=== PATIENT | male | born 1990 | race Caucasian/White ===

== ENCOUNTER 2018-02-15 11:01 | Emergency (ER) | payer OTHER ==
[2018-02-15] MEDS ORDERED: NA CHLORIDE 0.9% 1,000 ML ONE (11:28)
[2018-02-15] MEDS ORDERED: MORPHINE 4 MG/ML SYR ONE (11:28)
[2018-02-15] MEDS ORDERED: ONDANSETRON 4 MG/2 ML VIAL ONE (11:28)
[2018-02-15] MEDS ORDERED: ASPIRIN 81 MG CHEWABLE TABLET ONE (11:28)
[2018-02-15 11:52] LABS: Absolute Lymphocytes (CBC) 1.3 K/uL (0.7-4.9); Absolute Monocytes 0.7 K/uL (0.1-1.3); Absolute Neutrophil 5.2 K/uL (1.8-8.0); Basophils % 0.7 % (0-1.3); Eosinophils % 0.4 % (0-4.4); Hematocrit 45.9 % (39.6-49.0); Lymphocytes % 17.9 % (15.3-44.8); MCH 32.6 pg (27.0-35.0); MCV 95.7 fL (80-100); Monocytes % 9.8 % (3.3-12.3)
[2018-02-15 12:04] LABS: Bicarbonate 25 mEq/L (21-31); Glucose Level 105 mg/dL (65-120); Potassium 3.4 mEq/L (3.6-5.0); Sodium Level 137 mEq/L (135-145)
[2018-02-15 12:08] LABS: Protime INR 1.03
[2018-02-15 12:11] LABS: ALT/SGPT 26 IU/L (10-60); AST/SGOT 28 IU/L (10-42); Alkaline Phosphatase 55 IU/L (42-121); BUN Blood Urea Nitrogen 13 mg/dL (6-20); Bilirubin Direct 0.2 mg/dL (0-0.2); Bilirubin Total 3.5 mg/dL (0.3-1.2); Protein, Total 7.7 g/dL (6.0-8.3)
[2018-02-15 12:14] LABS: CKMB Creatine Kinase MB 1.2 ng/ml (0.3-4.0)
--- NOTE | 2018-02-15 12:18 | RAD REPORT ---
EXAM DESCRIPTION: RAD - Chest Single View - 02/15/2018 11:51 am CLINICAL HISTORY: Chest pain COMPARISON: None. TECHNIQUE: AP portable chest image was obtained 1139 hours . FINDINGS: Lungs are clear. Heart and vasculature are normal. No measurable pleural effusion and no p neumothorax. No gross bony abnormality seen. No acute aortic findings suspected. IMPRESSION: No acute cardiopulmonary process.
[2018-02-15] MEDS ORDERED: KETOROLAC 30 MG/ML INJ ONE (12:36)
[2018-02-15] MEDS ORDERED: POTASSIUM CL SA 10 MEQ TAB PO ONE (12:40)
--- NOTE | 2018-02-15 13:47 | EKG ---
Test Date: 2018-02-15 Test Time: 11:13:36 Shipping Lead Person: LUBA MEASUREMENT RESULTS: Intervals: Rate: 100 MI: 132 QRSD: 88 QT: 338 QTc: 436 [place]: P: 82 MI: 132 QRS: 80 T: 79 INTERPRETIVE STATEMENTS: Normal sinus rhythm Normal ECG No previous ECG available for comparison Electronically Signed On 02-15-18 13:46:20 CDT by Shay Sandoval
--- NOTE | 2018-02-15 15:40 | EKG ---
Test Date: 2018-02-15 Test Time: 14:45:16 Copy Camera Operator: FRANCES MEASUREMENT RESULTS: Intervals: Rate: 59 VA: 140 QRSD: 98 QT: 402 QTc: 397 [place]: P: 54 VA: 140 QRS: 74 T: 66 INTERPRETIVE STATEMENTS: Sinus bradycardia Early repolarization Otherwise normal ECG Compared to ECG 02/15/2018 11:13:36 Early repolarization now present Sinus rhythm no longer present Electronically Signed On 02-15-18 15:39:56 CDT by Shay Sandoval
--- NOTE | 2018-02-15 16:28 | ER ---
Nurse's Notes [facility] Name: Sebastián Herzog Age: 28 yrs Sex: Male : 1990 Arrival Date: 02/15/2018 Time: 11:02 Bed 8 Private MD: Diagnosis: Other chest pain Presentation: 02/15 11:08 Presenting complaint: Patient states: Sternal chest pain that started suddenly 1 hr [employer]UM[employer] aj while patient was at work. Patient reports pain is worse with movement and deep breathing. Transition of care: patient was not received from another setting of care. Onset of symptoms was February 15, 2018. Care prior to arrival: None. 11:08 Method Of Arrival: Ambulatory aj 11:08 Acuity: ARIE 3 aj 12:00 Risk Assessment: Do you want to hurt yourself or someone else? Patient reports no sg desire to harm self or others. Initial Sepsis Screen: Does the patient meet any 2 criteria? No. Patient's initial sepsis screen is negative. Does the patient have a suspected source of infection? No. Patient's initial sepsis screen is negative. Triage Assessment: 11:09 General: Appears in no apparent distress. uncomfortable, Behavior is calm, cooperative, aj appropriate for age. Pain: Complains of pain in chest. Neuro: Level of Consciousness is awake, alert, obeys commands, Oriented to person, place, time, situation. Cardiovascular: Reports chest pain, Capillary refill < 3 seconds in bilateral fingers. Respiratory: Airway is patent Respiratory effort is even, unlabored, Respiratory pattern is regular, symmetrical. Derm: Skin is intact, is healthy with good turgor, Skin is pink, warm \T\ dry. normal. Historical: - Allergies: 11:09 No Known Allergies; aj - Home Meds: 11: None [Active]; aj - PMHx: 11: None; aj - PSHx: 11: None; aj - Immunization history:: Adult Immunizations up to date. - Social history:: Smoking status: Patient/guardian denies using tobacco. - Ebola Screening: : Patient negative for fever greater than or equal to 101.5 degrees Fahrenheit, and additional compatible Ebola Virus Disease symptoms Patient denies exposure to infectious person Patient denies travel to an Ebola-affected area in the 21 days before illness onset No symptoms or risks identified at this time. Screenin:35 Abuse screen: Denies threats or abuse. Denies injuries from another. Nutritional sv screening: No deficits noted. Tuberculosis screening: No symptoms or risk factors identified. Fall Risk None identified. Assessment: 11:54 Reassessment: Patient is alert, oriented x 3, equal unlabored respirations, skin sg warm/dry/pink. General: Appears in no apparent distress. uncomfortable, well groomed, well developed, well nourished, Behavior is cooperative, appropriate for age, anxious. Pain: Complains of pain in chest Pain does not radiate. Pain began 3 hours ago. Neuro: No deficits noted. Cardiovascular: Heart tones S1 S2 present Capillary refill is brisk in bilateral fingers Patient's skin is warm and dry. Chest pain is denied. Respiratory: Airway is patent Respiratory effort is even, unlabored, Respiratory pattern is regular, symmetrical, Breath sounds are clear. GI: No signs and/or symptoms were reported involving the gastrointestinal system. : No signs and/or symptoms were reported regarding the genitourinary system. EENT: No signs and/or symptoms were reported regarding the EENT system. Derm: Skin is pink, warm \T\ dry. Musculoskeletal: No signs and/or symptoms reported regarding the musculoskeletal system. 12:30 Reassessment: Patient appears in no apparent distress at this time. Patient and/or sg family updated on plan of care and expected duration. Pain level reassessed. Patient is alert, oriented x 3, equal unlabored respirations, skin warm/dry/pink. Patient states symptoms have not improved. 13:30 Reassessment: Patient appears in no apparent distress at this time. Patient and/or sg family updated on plan of care and expected duration. Pain level reassessed. Patient is alert, oriented x 3, equal unlabored respirations, skin warm/dry/pink. Patient states symptoms have not improved. 14:30 Reassessment: Patient appears in no apparent distress at this time. Patient and/or sg family updated on plan of care and expected duration. Pain level reassessed. Patient is alert, oriented x 3, equal unlabored respirations, skin warm/dry/pink. awaiting repeat troponin results, no new orders received at this time Patient states feeling better. 15:30 Reassessment: Patient appears in no apparent distress at this time. Patient and/or sg family updated on plan of care and expected duration. Pain level reassessed. Patient is alert, oriented x 3, equal unlabored respirations, skin warm/dry/pink. pt family at bedside at this time, awaiting new orders, awaiting dispo, awaiting updated by ERP at this time, pt stated understanding Patient states feeling better. 16:55 Reassessment: Patient is alert, oriented x 3, equal unlabored respirations, skin aa5 warm/dry/pink. Vital Signs: 11:09 BP 132 / 94; Pulse 122; Resp 23; Temp 98.5; Pulse Ox 100% on R/A; Weight 52.16 kg; aj Height 5 ft. 8 in. (172.72 cm); Pain 9/10; 11:53 BP 133 / 93; Pulse 79; Resp 17 S; Pulse Ox 100% on R/A; sg 12:03 BP 128 / 77; sg 12:43 BP 121 / 74; Pulse 91; Resp 12; Pulse Ox 97% ; sv 13:38 BP 116 / 72; Pulse 62; Resp 15; Pulse Ox 100% on R/A; jb1 14:30 BP 108 / 70; Pulse 59; Resp 13; Pulse Ox 98% ; sv 15:44 BP 107 / 79; Pulse 61; Resp 18; Pulse Ox 99% ; sv 16:45 BP 112 / 73; Pulse 60; Resp 17 S; Pulse Ox 100% on R/A; sg 11:09 Body Mass Index 17.49 (52.16 kg, 172.72 cm) aj ED Course: 11:02 Patient arrived in ED. sb2 11:09 Triage completed. aj 11:09 Preet Hi PA is PHCP. cp 11:09 Guy Vaz MD is Attending Physician. cp 11:09 Arm band placed on left wrist. Patient placed in an exam room. EKG completed in triage. aj Results shown to . 11:20 Patient has correct armband on for positive identification. Placed in gown. Bed in low sv position. Call light in reach. Side rails up X 1. air sampling and monitoring on. Pulse ox on. NIBP on. 11:20 Initial lab(s) drawn, by me, sent to lab. Inserted saline lock: 20 gauge in right sv antecubital area, using aseptic technique. Blood collected. Flushed right antecubital with 5 ml normal saline. 11:20 Patient maintains SpO2 saturation greater than 95% on room air. sg 11:23 Tima Blunt, RN is Primary Nurse. sg 11:38 EKG done, by orthophotography technician. reviewed by Preet HANDY. at1 11:49 Chest Single View In Process Unspecified. EDMS 15:09 EKG done, by orthophotography technician. reviewed by Preet HANDY Repeat EKG. at1 16:55 No provider procedures requiring assistance completed. IV discontinued, intact, sg bleeding controlled, No redness/swelling at site. Pressure dressing applied. Administered Medications: 11:36 Drug: Aspirin Chewable Tablet 324 mg Route: PO; sg 12:30 Follow up: Response: No adverse reaction sg 11:36 Drug: NS 0.9% 1000 ml Route: IV; Rate: 1 bolus; Site: right antecubital; sg 11:36 Drug: morphine 4 mg Route: IVP; Site: right antecubital; sg 11:36 Drug: Zofran 4 mg Route: IVP; Site: right antecubital; sg 12:37 Drug: TORadol 30 mg Route: IVP; Site: right antecubital; sg 13:30 Follow up: Response: No adverse reaction; Pain is decreased sg 12:37 Drug: Potassium Chloride 20 mEq Route: PO; sg 13:30 Follow up: Response: No adverse reaction sg Outcome: 16:28 Discharge ordered by MD. cp 16:55 Discharged to home ambulatory, with family. aa5 16:55 Condition: stable 16:55 Discharge instructions given to patient, Instructed on discharge instructions, follow up and referral plans. medication usage, Demonstrated understanding of instructions, follow-up care, medications, Prescriptions given X 1. 16:57 Patient left the ED. aa5 Signatures: Dispatcher [employer] EDMS Fred Garza jb1 Marianne Singh RN RN sv Gay, Steven, RN RN sg Myers, Amanda, RN RN aj Calderon, Audri, RN RN aa5 Kiarra coreas, sanitary inspector EKG Tat1 Preet Hi PA PA cp Billeau, Sheri sb2
--- NOTE | 2018-02-15 16:28 | EDPHYS ---
Physician Documentation [facility] Name: Sebastián Herzog Age: 28 yrs Sex: Male : 1990 Arrival Date: 02/15/2018 Time: 11:02 Bed 8 Private MD: ED Physician Guy Vaz HPI: 02/15 11:20 This 28 yrs old Male presents to ER via Ambulatory with complaints of Chest cp Pain. 11:20 The patient or guardian reports chest pain that is located primarily in the substernal cp area. The pain does not radiate. Duration: The patient or guardian reports a single episode, that is still ongoing, and worsening. Historical: - Allergies: 11: No Known Allergies; aj - Home Meds: 11: None [Active]; aj - PMHx: 11: None; aj - PSHx: 11: None; aj - Immunization history:: Adult Immunizations up to date. - Social history:: Smoking status: Patient/guardian denies using tobacco. - Ebola Screening: : Patient negative for fever greater than or equal to 101.5 degrees Fahrenheit, and additional compatible Ebola Virus Disease symptoms Patient denies exposure to infectious person Patient denies travel to an Ebola-affected area in the 21 days before illness onset No symptoms or risks identified at this time. ROS: 11:25 Constitutional: Negative for body aches, chills, fever, poor PO intake. cp 11:25 Eyes: Negative for injury, pain, redness, and discharge. cp 11:25 ENT: Negative for drainage from ear(s), ear pain, sore throat, difficulty swallowing, difficulty handling secretions. 11:25 Cardiovascular: Positive for chest pain, Negative for edema, palpitations. 11:25 Respiratory: Negative for cough, dyspnea on exertion, shortness of breath, wheezing. 11:25 Abdomen/GI: Negative for abdominal pain, nausea, vomiting, and diarrhea, constipation, anorexia. 11:25 Back: Negative for pain at rest, pain with movement, radiated pain. 11:25 : Negative for urinary symptoms. 11:25 MS/extremity: Negative for injury or acute deformity, decreased range of motion, paresthesias, swelling. 11:25 Skin: Negative for cellulitis, rash. 11:25 Neuro: Negative for altered mental status, dizziness, headache, numbness, weakness. 11:25 All other systems are negative. Exam: 11:32 Constitutional: The patient appears in no acute distress, alert, awake, cp non-diaphoretic, non-toxic, well developed, well nourished, uncomfortable. 11:32 Head/Face: Normocephalic, atraumatic. Eyes: Pupils equal round and reactive to light, cp extra-ocular motions intact. Lids and lashes normal. Conjunctiva and sclera are non-icteric and not injected. Cornea within normal limits. Periorbital areas with no swelling, redness, or edema. ENT: Nares patent. No nasal discharge, no septal abnormalities noted. Tympanic membranes are normal and external auditory canals are clear. Oropharynx with no redness, swelling, or masses, exudates, or evidence of obstruction, uvula midline. Mucous membranes moist. Neck: Trachea midline, no thyromegaly or masses palpated, and no cervical lymphadenopathy. Supple, full range of motion without nuchal rigidity, or vertebral point tenderness. No Meningismus. Chest/axilla: Normal chest wall appearance and motion. Nontender with no deformity. No lesions are appreciated. 11:32 Cardiovascular: Rate: tachycardic, Rhythm: regular, Pulses: Pulses are 2+ in right radial artery and left radial artery. Heart sounds: murmur, not appreciated, rub, not appreciated, gallop, not appreciated, Edema: is not appreciated, JVD: is not appreciated. 11:32 Respiratory: the patient does not display signs of respiratory distress, Respirations: normal, no use of accessory muscles, no retractions, no splinting, no tachypnea, labored breathing, is not present, Breath sounds: are clear throughout, no decreased breath sounds, no stridor, no wheezing. 11:32 Abdomen/GI: Inspection: abdomen appears normal, Bowel sounds: active, all quadrants, Palpation: abdomen is soft and non-tender, in all quadrants, rebound tenderness, is not appreciated, voluntary guarding, is not appreciated, involuntary guarding, is not appreciated. 11:32 Back: pain, is absent, ROM is normal. 11:32 Skin: cellulitis, is not appreciated, no rash present. 11:32 Neuro: Orientation: to person, place \T\ time. Mentation: lucid, able to follow commands, Cerebellar function: is grossly normal, Motor: moves all fours, strength is normal, Sensation: no obvious gross deficits. 15:56 ECG was reviewed by the Attending Physician. cp Vital Signs: 11:09 BP 132 / 94; Pulse 122; Resp 23; Temp 98.5; Pulse Ox 100% on R/A; Weight 52.16 kg; aj Height 5 ft. 8 in. (172.72 cm); Pain 9/10; 11:53 BP 133 / 93; Pulse 79; Resp 17 S; Pulse Ox 100% on R/A; sg 12:03 BP 128 / 77; sg 12:43 BP 121 / 74; Pulse 91; Resp 12; Pulse Ox 97% ; sv 13:38 BP 116 / 72; Pulse 62; Resp 15; Pulse Ox 100% on R/A; jb1 14:30 BP 108 / 70; Pulse 59; Resp 13; Pulse Ox 98% ; sv 15:44 BP 107 / 79; Pulse 61; Resp 18; Pulse Ox 99% ; sv 16:45 BP 112 / 73; Pulse 60; Resp 17 S; Pulse Ox 100% on R/A; sg 11:09 Body Mass Index 17.49 (52.16 kg, 172.72 cm) aj MDM: 11:09 Patient medically screened. cp 12:00 Differential diagnosis: abnormal EKG, acute myocardial infarction, acute pericarditis, cp pancreatitis, pericarditis, pleurisy, pneumonia, pneumothorax, pulmonary embolus, stable angina, unstable angina. 16:20 Data reviewed: vital signs, nurses notes, lab test result(s), EKG, radiologic studies, cp plain films. 16:20 Test interpretation: by ED physician or midlevel provider: ECG, plain radiologic cp studies. 02/15 11:41 Order name: Basic Metabolic Panel; Complete Time: 12:20 EDMS 02/15 12:20 Interpretation: Normal except: K 3.4. cp 02/15 11:41 Order name: Liver (Hepatic) Function; Complete Time: 12:20 EDMS 02/15 12:20 Interpretation: Normal except: BILIT 3.5; A/G 1.9. cp 02/15 11:41 Order name: CKMB Creatine Kinase MB; Complete Time: 12:20 EDMS 02/15 11:20 Order name: EKG; Complete Time: 11:21 cp 02/15 11:40 Order name: Chest Single View; Complete Time: 12:20 EDMS 02/15 12:46 Interpretation: Report reviewed. 02/15 11:41 Order name: Magnesium; Complete Time: 12:20 EDNC 02/15 12:47 Interpretation: MG 2.0; Reviewed. 02/15 11:41 Order name: Troponin I; Complete Time: 12:20 EDNC 02/15 12:46 Interpretation: TROP < 0.03; Reviewed. 02/15 11:41 Order name: CBC with Automated Diff; Complete Time: 12:20 EDNC 02/15 11:41 Order name: Protime (+INR); Complete Time: 12:20 EDMS 02/15 11:41 Order name: PTT, Activated Partial Thromb; Complete Time: 12:20 EDNC 02/15 11:41 Order name: D-Dimer; Complete Time: 12:20 EDNC 02/15 14:35 Order name: Troponin I; Complete Time: 16:15 02/15 11:20 Order name: Cardiac monitoring; Complete Time: 11:23 02/15 11:20 Order name: EKG - Nurse/Tech; Complete Time: 11:27 cp 02/15 11:20 Order name: IV Saline Lock; Complete Time: 11:23 cp 02/15 11:20 Order name: Labs collected and sent; Complete Time: 11:23 02/15 11:20 Order name: O2 Per Protocol; Complete Time: 11:23 cp 02/15 11:20 Order name: O2 Sat Monitoring; Complete Time: 11:23 02/15 14:35 Order name: EKG; Complete Time: 14:35 02/15 14:35 Order name: EKG - Nurse/Tech; Complete Time: 15:06 cp EC:56 Rate is 100 beats/min. Rhythm is regular. CA interval is normal. QRS interval is cp normal. QT interval is normal. No ST changes noted. Interpreted by me. Reviewed by me. Administered Medications: 11:36 Drug: Aspirin Chewable Tablet 324 mg Route: PO; sg 12:30 Follow up: Response: No adverse reaction sg 11:36 Drug: NS 0.9% 1000 ml Route: IV; Rate: 1 bolus; Site: right antecubital; sg 11:36 Drug: morphine 4 mg Route: IVP; Site: right antecubital; sg 11:36 Drug: Zofran 4 mg Route: IVP; Site: right antecubital; sg 12:37 Drug: TORadol 30 mg Route: IVP; Site: right antecubital; sg 13:30 Follow up: Response: No adverse reaction; Pain is decreased sg 12:37 Drug: Potassium Chloride 20 mEq Route: PO; sg 13:30 Follow up: Response: No adverse reaction Disposition: 18:07 Co-signature as Attending Physician, Guy Vaz MD. rn Disposition: 02/15/18 16:28 Discharged to Home. Impression: Other chest pain. - Condition is Stable. - Discharge Instructions: Nonspecific Chest Pain. - Prescriptions for Naprosyn 500 mg Oral Tablet - take 1 tablet by ORAL route 2 times per day take with food; 20 tablet. - Work release form, Medication Reconciliation Form, Thank You Letter, Antibiotic Education, Prescription Opioid Use form. - Follow up: Private Physician; When: 1 - 2 days; Reason: Recheck today's complaints. - Problem is new. - Symptoms have improved. Signatures: Dispatcher [employer] EDNC Tima Blunt RN RN sg Myers, Amanda, RN RN aj Nieto, Roman, MD MD rn Calderon, Audri, RN RN aa5 Preet Hi PA PA cp Corrections: (The following items were deleted from the chart) 13:01 11:21 Chest Single View+RAD.RAD.BRZ ordered. [facility] EDNC 14 11:21 CBC+H.LAB.BRZ ordered. EDNC EDNC 14 11:21 PROTIME (+INR)+COAG.LAB.BRZ ordered. EDNC EDNC 11:21 PTT, ACTIVATED+COAG.LAB.BRZ ordered. EDNC EDNC 11:21 TROPONIN (EMERG DEPT USE ONLY)+C.LAB.BRZ ordered. EDNC EDNC 14 11:21 D-DIMER+COAG.LAB.BRZ ordered. EDNC EDNC 14 11:21 BASIC METABOLIC PANEL+C.LAB.BRZ ordered. EDNC EDNC 11:21 CKMB+C.LAB.BRZ ordered. EDNC EDNC 14: 11:21 CREATINE PHOSPHOKINASE+C.LAB.BRZ ordered. EDNC EDNC 11:21 HEPATIC FUNCTION+C.LAB.BRZ ordered. EDMS EDMS 14:28 11:21 MAGNESIUM+C.LAB.BRZ ordered. EDNC EDMS 16:57 16:28 02/15/2018 16:28 Discharged to Home. Impression: Other chest pain. Condition is aa5 Stable. Forms are Medication Reconciliation Form, Thank You Letter, Antibiotic Education, Prescription Opioid Use. Follow up: Private Physician; When: 1 - 2 days; Reason: Recheck today's complaints. Problem is new. Symptoms have improved. cp
== END 2018-02-15 16:57 | disposition home or self-care (01) ==
LOC: ER 11:01
DX: R07.89 Other chest pain (principal)
CPT/HCPCS: 36415; 71045; 80048; 80076; 82553; 83735; 84484; 85025; 85379; 85610; 85730; 93005; 96374; 96375; 99285; J2405; J7030